=== PATIENT | female | born 1995 | race Caucasian/White ===

== ENCOUNTER 2018-12-19 01:33 | Emergency (ER) | payer OTHER ==
[~2018-12-19] VITALS: Ht 167.6 cm; Wt 86.2 kg
[~2018-12-19 01:33] MED LIST: ACCUNEB1.25 MG/3 IH; ADVAIR 100-501 EACH INH; AMOXICILLIN875 MG PO; BACTRIM DS TAB1 EACH PO; CLARITIN10 MG PO; FLAGYL500 MG PO; IBUPROFEN 400400 M1 PO; IBUPROFEN 400400 M2 PER TUBE; IBUPROFEN 600600 M1 PO; IBUPROFEN 800800 M1 PO; MAXALT MLT ODT 55 M1 PO; NOHOMEMEDICATIONS; PREDNISONE 20 M20 MG PO; SINGULAIR 10 MG10 M1 PO; SINGULAIR4 MG; ULTRAM 50MG TAB50 MG PO; ZOFRAN ODT4 MG PO
[2018-12-19] MEDS ORDERED: NORCO 5-325 TA1 EAC1 PO (02:36)
[2018-12-19] MEDS ORDERED: PENICILLIN V P500 MG PO (02:36)
[2018-12-19] MEDS ORDERED: IBUPROFEN 800800 M1 PO (02:36)
[2018-12-19 02:46] VITALS: BP 129/87
== END 2018-12-19 02:47 | disposition home or self-care (01) ==
LOC: M.ERS 01:33
DX: S02.5XXA Fracture of tooth (traumatic), initial encounter for closed fracture (principal); K05.219 Aggressive periodontitis, localized, unspecified severity; J45.909 Unspecified asthma, uncomplicated; X58.XXXA Exposure to other specified factors, initial encounter; Y93.89 Activity, other specified; Y92.89 Other specified places as the place of occurrence of the external cause; Y99.8 Other external cause status

== ENCOUNTER 2020-11-20 05:45 | Emergency (ER) | payer BC ==
[~2020-11-20] VITALS: Ht 167.6 cm; Wt 87.1 kg
[~2020-11-20 05:45] MED LIST changes: +NORCO 5-325 TA1 EAC1 PO; +PENICILLIN V P500 MG PO
[2020-11-20] MEDS ORDERED: AMOXICILLIN 50500 MG PO (07:30)
[2020-11-20] MEDS ORDERED: CORTISPORIN OTI10 M2 OTIC (07:30)
[2020-11-20 07:36] VITALS: BP 122/72
== END 2020-11-20 07:37 | disposition home or self-care (01) ==
LOC: M.ERS 05:45
DX: H60.93 Unspecified otitis externa, bilateral (principal); J45.909 Unspecified asthma, uncomplicated